=== PATIENT | female | born 1970 | race Caucasian/White ===

== ENCOUNTER 2017-02-03 12:17 | Emergency (ER) | payer BC ==
[2017-02-03] MEDS ORDERED: 0.9 % SODIUM CHLORIDE 1,000 ML BAG IV ONE (12:35)
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
[2017-02-03 12:54] LABS: BASO % 0.5 % (0-6); EOS % 1.9 % (0-6); GRAN % 70.6 % (47-80); HEMATOCRIT 41.3 % (35.0-47.0); HEMOGLOBIN 13.9 gm/dl (11.6-16.0); LYMPH % 15.4 % (16-45); MEAN CELL VOLUME 96.3 fl (81-97); MEAN CORPUSCULAR HEMOGLOBIN 32.4 pg (27-33); MEAN CORPUSCULAR HGB CONC 33.7 g/dl (32-36); MEAN PLATELET VOLUME 10.6 fl (7.4-10.4); MONO % 11.6 % (0-9); PLATELET COUNT 343 K/uL (130-400); RED BLOOD COUNT 4.29 M/uL (3.80-5.40); RED CELL DISTRIBUTION WIDTH 13.6 % (11.5-14.5); WHITE BLOOD COUNT W/O DIFF 11.1 K/uL (4.2-12.2)
[2017-02-03 13:05] LABS: ANION GAP 11.8 (7-16); BLOOD UREA NITROGEN 6 mg/dL (7-17); CARBON DIOXIDE 27.2 mmol/L (22-30); CREATININE 0.5 mg/dL (0.52-1.04); EST GLOMERULAR FILTRATION RATE > 60 ml/min; GLUCOSE,RANDOM 174 mg/dL (70-110)
[2017-02-03] MEDS ORDERED: Diph,Pert(Acell),Tet Vac 0.5 ML SYR IM ONE (13:11)
[2017-02-03 13:20] LABS: URINE APPEARANCE CLEAR; URINE BILIRUBIN NEGATIVE (NEGATIVE); URINE BLOOD NEGATIVE (NEGATIVE); URINE COLOR YELLOW; URINE GLUCOSE (UA) NEGATIVE (NEGATIVE); URINE KETONE NEGATIVE (NEGATIVE); URINE LEUKOCYTE ESTERASE NEGATIVE (NEGATIVE); URINE NITRITE NEGATIVE (NEGATIVE); URINE PROTEIN NEGATIVE (NEGATIVE); URINE UROBILINOGEN 0.2 E.U./dL (0.20 - 1.00)
[2017-02-03 13:23] LABS: HCG,QUALITATIVE URINE NEGATIVE (NEGATIVE)
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
== END 2017-02-03 15:17 | disposition home or self-care (01) ==
LOC: ER 12:17
DX: G89.11 Acute pain due to trauma (principal); M54.2 Cervicalgia; R07.81 Pleurodynia; R10.11 Right upper quadrant pain; R10.2 Pelvic and perineal pain; R51 Headache; V48.1XXA Car passenger injured in noncollision transport accident in nontraffic accident, initial encounter; Y92.007 Garden or yard of unspecified non-institutional (private) residence as the place of occurrence of the external cause
CPT/HCPCS: 70450; 70486; 71250; 72125; 74176; 80048; 81003; 81025; 85025; 85730; 90715; 96372; 99283; 99284; J7030

== ENCOUNTER 2017-10-17 12:38 | Emergency (ER) | payer BC ==
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
[2017-10-17 13:48] LABS: BASO % 0.4 % (0-6); EOS % 1.1 % (0-6); GRAN % 68.3 % (47-80); HEMATOCRIT 39.6 % (35.0-47.0); HEMOGLOBIN 13.2 gm/dl (11.6-16.0); LYMPH % 17.4 % (16-45); MEAN CELL VOLUME 96.1 fl (81-97); MEAN CORPUSCULAR HGB CONC 33.3 g/dl (32-36); MEAN PLATELET VOLUME 10.6 fl (7.4-10.4); MONO % 12.8 % (0-9); PLATELET COUNT 288 K/uL (130-400); RED BLOOD COUNT 4.12 M/uL (3.80-5.40); RED CELL DISTRIBUTION WIDTH 13.2 % (11.5-14.5); WHITE BLOOD COUNT W/O DIFF 8.9 K/uL (4.2-12.2)
[2017-10-17 14:25] LABS: URINE APPEARANCE CLEAR; URINE BILIRUBIN NEGATIVE (NEGATIVE); URINE BLOOD NEGATIVE (NEGATIVE); URINE GLUCOSE (UA) NEGATIVE (NEGATIVE); URINE KETONE NEGATIVE (NEGATIVE); URINE LEUKOCYTE ESTERASE NEGATIVE (NEGATIVE); URINE NITRITE NEGATIVE (NEGATIVE); URINE PROTEIN NEGATIVE (NEGATIVE); URINE UROBILINOGEN 0.2 E.U./dL (0.20 - 1.00)
[2017-10-17 14:26] LABS: URINE COLOR COLORLESS
[2017-10-17 15:15] LABS: GLUCOSE,RANDOM 128 mg/dL (74-109)
[2017-10-17 15:16] LABS: ALB/GLOB RATIO 1.4 (1.1-1.8); ALBUMIN 4.7 g/dL (4.0-5.0); BLOOD UREA NITROGEN 15 mg/dL (6-20); CREATININE 0.5 mg/dL (0.5-0.9); EST GLOMERULAR FILTRATION RATE > 60 mL/min
[2017-10-17 15:17] LABS: ALCOHOL 0.244 g/dL (0-0.010); ALKALINE PHOSPHATASE 80 U/L (35-104); ALT/SGPT 20 U/L (<33); AST/SGOT 33 U/L (10.0-35.0)
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
--- NOTE | 2017-10-17 19:36 | RADIOLOGY REPORT ---
EXAM: CHEST 2 VIEWS HISTORY: CHEST PAIN. TECHNIQUE: Frontal and lateral views of the chest. COMPARISON: CT chest 02/03/17. FINDINGS: The heart size is normal. The lungs are clear. No pneumothorax. IMPRESSION: NEGATIVE CHEST. JOB NUMBER: [id number] MTDD
== END 2017-10-17 14:40 | disposition home or self-care (01) ==
LOC: ER 12:38
DX: M54.2 Cervicalgia (principal); R07.9 Chest pain, unspecified; G89.11 Acute pain due to trauma; F10.129 Alcohol abuse with intoxication, unspecified; Y90.8 Blood alcohol level of 240 mg/100 ml or more; F17.210 Nicotine dependence, cigarettes, uncomplicated; V47.0XXA Car driver injured in collision with fixed or stationary object in nontraffic accident, initial encounter
CPT/HCPCS: 99283; 99284; 85025; 80053; 81003; 71046; 72050; G0480; 80320